=== PATIENT | male | born 1990 | race African-American/Black ===

== ENCOUNTER 2016-06-22 12:50 | Emergency (ER) | payer MEDICAID, OTHER ==
[~2016-06-22 12:50] MED LIST: ALBUTEROL INH
--- NOTE | 2016-06-22 14:18 | EDDOCDS ---
Physician Documentation [facility] Name: Brody Treviño Age: 26 yrs Sex: Male : 1990 Arrival Date: 06/22/2016 Time: 12:50 Bed 30 Private MD: NO PRIMARY PHYSICIAN, . Disposition: 06/22 13:40 Critical Care: Critical care not applicable. le Disposition: 06/22/16 13:38 Discharged to Home/Self Care. Impression: Other recurrent depressive disorders. - Condition is Stable. - Discharge Instructions: Depression, Adult, Anger Management. - Prescriptions for Hydroxyzine HCl 25 mg Oral Tablet - take 1 tablet by ORAL route every 6 hours As needed; 30 tablet. - Medication Reconciliation, Local Pharmacy Hours form. - Follow up: [facility]; When: Call to arrange an appointment; Reason: Recheck today's complaints, To establish care. Follow up: Referral list, As provided by [facility]; When: Call to arrange an appointment; Reason: Recheck today's complaints, Continuance of care. - Problem is an ongoing problem. - Symptoms are unchanged. - Notes: Call the medicine clinic to schedule a new patientappointment. They can manage your asthma for you and may be able to help you with medications for your mood swings Return to the ED for any further concerns Historical: - Allergies: no known allergies; - Home Meds: 1. albuterol sulfate 90 mcg/actuation Inhl HFAA every 4-6 hours 2. albuterol sulfate 2.5 mg /3 mL (0.083 %) Inhl nebu 4 times per day - PMHx: Asthma; Depression; - PSHx: none; - Social history: No barriers to communication noted, The patient speaks fluent Divehi, Smoking status: Patient uses tobacco products, current every day smoker. Patient uses street drugs, marijuana. - Family history: Not pertinent. - : The pt / caregiver states he / she is not on anticoagulants. Home medication list is obtained from the patient. - Exposure Risk Screening:: None identified. Vital Signs: 12:52 BP 121 / 66; Pulse 110; Resp 20 S; Temp 97.7(O); Pulse Ox 97% on R/A; Weight 70.31 kg / dd6 155.01 lbs (R); Height 6 ft. 2 in. (187.96 cm) (R); 12:52 Body Mass Index 19.90 (70.31 kg, 187.96 cm) dd6 MDM: 14:04 Financial registration complete. lg 14:06 PSA Outpatient Referrals was scanned into [employer] and attached to record. cs 14:11 [facility] Payment Agreement was scanned into [employer] and attached to record. lg Signatures: Hayden Avendano, PSA PSA cs Rosalba Fitch, Reg Reg lg Porsha Lewis, Maryann VillaRN RN js13 Alon Pink,PATRICK RN jf3 The chart was reviewed and I authenticate all verbal orders and agree with the evaluation and treatment provided.Attachments: 14:11 [facility] Payment Agreement lg MTDD
--- NOTE | 2016-06-22 14:18 | EDDOCDS ---
Nurse's Notes [facility] Name: Brody Treviño Age: 26 yrs Sex: Male : 1990 Arrival Date: 06/22/2016 Time: 12:50 Bed 30 Private MD: NO PRIMARY PHYSICIAN, . Diagnosis: Other recurrent depressive disorders Presentation: 06/22 12:58 Presenting complaint: Patient states: Pt states just not himself. mood swings with jf3 anger and depression worsening since approx March of last year. States memory lapses at times. denies SI/HI. Mental Health Triage Level: Level 1- Pt displays no suicidal or homicidal ideations and does not appear to be a danger to self or others. Adult Sepsis Screening: The patient does not have new or worsening altered mentation. Patient's respiratory rate is less than 22. Systolic blood pressure is greater than 100. Patient has a qSOFA score of 0- Negative Sepsis Screen. Mental Health Triage Level: Level 1- Pt displays no suicidal or homicidal ideations and does not appear to be a danger to self or others. Suicide/Homicide risk assessment- the patient denies having any suicidal and/or homicidal ideations and does not present with any other emotional, behavioral or mental health complaints. Status: Patient is not a children's service supervisor or dependent. Transition of care: patient was not received from another setting of care. 12:58 Acuity: ERMA Level 4 jf3 12:58 Method Of Arrival: Walkin/Carried/Asstd jf3 Triage Assessment: 13:04 General: Appears in no apparent distress, comfortable, Behavior is cooperative, crying, jf3 pleasant. General: pt states restless legs lately. Pain: Denies pain. Pt Declines HIV testing. The patient is triaged at the bedside. See Assessment in Nurses Notes section of ED record. Historical: - Allergies: no known allergies; - Home Meds: 1. albuterol sulfate 90 mcg/actuation Inhl HFAA every 4-6 hours 2. albuterol sulfate 2.5 mg /3 mL (0.083 %) Inhl nebu 4 times per day - PMHx: Asthma; Depression; - PSHx: none; - Social history: No barriers to communication noted, The patient speaks fluent Nigerien, Smoking status: Patient uses tobacco products, current every day smoker. Patient uses street drugs, marijuana. - Family history: Not pertinent. - : The pt / caregiver states he / she is not on anticoagulants. Home medication list is obtained from the patient. - Exposure Risk Screening:: None identified. Screenin:42 Screening information is obtained from the patient. Fall risk: No risks identified. js13 Assistance ADL's: requires no assistance with activities of daily living. Abuse/DV Screen: The patient / caregiver reports he/she is: not in a situation that causes fear, pain or injury. Nutritional screening: No deficits noted. Advance Directives: There is no active DNR order. home support is adequate. Assessment: 13:42 General: Appears in no apparent distress, Behavior is appropriate for age, cooperative. js13 Pain: Denies pain. Neurological: Level of Consciousness is awake, alert. Respiratory: Airway is patent Respiratory effort is even, unlabored, Respiratory pattern is regular, symmetrical. Derm: Skin is normal. Vital Signs: 12:52 BP 121 / 66; Pulse 110; Resp 20 S; Temp 97.7(O); Pulse Ox 97% on R/A; Weight 70.31 kg dd6 (R); Height 6 ft. 2 in. (187.96 cm) (R); 12:52 Body Mass Index 19.90 (70.31 kg, 187.96 cm) dd6 Vitals: 12:52 Log In Time: June 22, 2016 at 12:50. dd6 12:53 RN notified that patient meets Red Flag criteria. dd6 ED Course: 12:52 Patient visited by Juan A Garibay PCA. dd6 12:52 NO PRIMARY PHYSICIAN, . is Private Physician. dd6 12:52 Patient moved to Waiting dd6 12:56 Porsha Lewis FNP [facility] le 12:56 Patient moved to [place] dd6 12:58 Patient visited by Porsha Lewis FNP. le 12:58 Patient visited by Porsha Lewis FNP. le 12:58 Patient moved to 30 [facility] 13:02 Triage Initiated jf3 13:06 Patient visited by Alon Pink RN. jf3 13:37 [facility] is Referral Physician. le 13:37 Referral list, As provided by [facility] is Referral Physician. le 13:42 The patient / caregiver is instructed regarding the plan of care and ED course. js13 13:42 No IV's were initiated during this patient's visit. No procedures done that require js13 assistance. 13:44 Patient visited by Maryann Vo,RN. js13 14:06 PSA Outpatient Referrals was scanned into [employer] and attached to record. 14:11 [facility] Payment Agreement was scanned into [employer] and attached to record. lg Order Results: There are currently no results for this order. Outcome: 13:38 Discharge ordered by Provider. le 13:42 Discharge Assessment: Patient awake, alert and oriented x 3. No cognitive and/or js13 functional deficits noted. Patient verbalized understanding of disposition instructions. patient administered narcotics - no. Condition: stable. No special radiology studies were completed. Property :Personal belongings accompany Pt. 14:16 The following High Risk Discharge criteria are identified: None. Discharged to home js13 ambulatory. Discharge instructions given to patient, Instructed on discharge instructions, follow up and referral plans. medication usage, Demonstrated understanding of instructions, medications, Pt was receptive of discharge instructions/ teaching. Prescriptions given X 1. 14:17 Patient left the ED. js13 Signatures: Hayden Avendano, PSA PSA cs Rosalba Fitch, Reg Reg lg Iliana, Kulwinder, Security Aide Porsah Garcia, SPECIAL EDUCATION INCLUSION TEACHER SPECIAL EDUCATION INCLUSION TEACHER le Juan A Garibay, MANAGER PROGRESSIVE CARE MANAGER PROGRESSIVE CARE dd6 Maryann Vo,RN RN js13 Alon Pink,RN RN jf3 MTDD
--- NOTE | 2016-06-24 15:18 | EDDOCDS ---
Nurse's Notes [facility] Name: Brody Treviño Age: 26 yrs Sex: Male : 1990 Arrival Date: 06/22/2016 Time: 12:50 Bed 30 Private MD: NO PRIMARY PHYSICIAN, . Diagnosis: Other recurrent depressive disorders Presentation: 06/22 12:58 Presenting complaint: Patient states: Pt states just not himself. mood swings with jf3 anger and depression worsening since approx March of last year. States memory lapses at times. denies SI/HI. Mental Health Triage Level: Level 1- Pt displays no suicidal or homicidal ideations and does not appear to be a danger to self or others. Adult Sepsis Screening: The patient does not have new or worsening altered mentation. Patient's respiratory rate is less than 22. Systolic blood pressure is greater than 100. Patient has a qSOFA score of 0- Negative Sepsis Screen. Mental Health Triage Level: Level 1- Pt displays no suicidal or homicidal ideations and does not appear to be a danger to self or others. Suicide/Homicide risk assessment- the patient denies having any suicidal and/or homicidal ideations and does not present with any other emotional, behavioral or mental health complaints. Status: Patient is not a food service sales representatives or dependent. Transition of care: patient was not received from another setting of care. 12:58 Acuity: ERMA Level 4 jf3 12:58 Method Of Arrival: Walkin/Carried/Asstd jf3 Triage Assessment: 13:04 General: Appears in no apparent distress, comfortable, Behavior is cooperative, crying, jf3 pleasant. General: pt states restless legs lately. Pain: Denies pain. Pt Declines HIV testing. The patient is triaged at the bedside. See Assessment in Nurses Notes section of ED record. Historical: - Allergies: no known allergies; - Home Meds: 1. albuterol sulfate 90 mcg/actuation Inhl HFAA every 4-6 hours 2. albuterol sulfate 2.5 mg /3 mL (0.083 %) Inhl nebu 4 times per day - PMHx: Asthma; Depression; - PSHx: none; - Social history: No barriers to communication noted, The patient speaks fluent Canadian, Smoking status: Patient uses tobacco products, current every day smoker. Patient uses street drugs, marijuana. - Family history: Not pertinent. - : The pt / caregiver states he / she is not on anticoagulants. Home medication list is obtained from the patient. - Exposure Risk Screening:: None identified. Screenin:42 Screening information is obtained from the patient. Fall risk: No risks identified. js13 Assistance ADL's: requires no assistance with activities of daily living. Abuse/DV Screen: The patient / caregiver reports he/she is: not in a situation that causes fear, pain or injury. Nutritional screening: No deficits noted. Advance Directives: There is no active DNR order. home support is adequate. Assessment: 13:42 General: Appears in no apparent distress, Behavior is appropriate for age, cooperative. js13 Pain: Denies pain. Neurological: Level of Consciousness is awake, alert. Respiratory: Airway is patent Respiratory effort is even, unlabored, Respiratory pattern is regular, symmetrical. Derm: Skin is normal. Social Work Consult: 14:06 Social Work Note: Met with Pt at bedside per request BÁRBARA Lewis. Pt was A&Ox3, used rb good eye contact, denied SI/HI, denied AH/VH, presented with good insight. Pt reported gained full custody of 2y/o Dgt today. Pt stated having extreme mood swings (from angry to crying; no in between) , memory loss, stutters, and feeling depressed since March. Pt looking for referrals. Pt works at [employer] and reports they are very supportive. Pt to contact CPS Worker- A.W. for assistance as needed. Referrals given. Pt to follow up with C and outpt services. No further interventions needed at this time. Vital Signs: 12:52 BP 121 / 66; Pulse 110; Resp 20 S; Temp 97.7(O); Pulse Ox 97% on R/A; Weight 70.31 kg dd6 (R); Height 6 ft. 2 in. (187.96 cm) (R); 12:52 Body Mass Index 19.90 (70.31 kg, 187.96 cm) dd6 Vitals: 12:52 Log In Time: June 22, 2016 at 12:50. dd6 12:53 RN notified that patient meets Red Flag criteria. dd6 ED Course: 12:52 Patient visited by Juan A Garibay PCA. dd6 12:52 NO PRIMARY PHYSICIAN, . is Private Physician. dd6 12:52 Patient moved to [facility] dd6 12:56 Porsha Lewis FNP is [facility] le 12:56 Patient moved to [facility] dd6 12:58 Patient visited by Porsha Lewis FNP. le 12:58 Patient visited by Porsha Lewis FNP. le 12:58 Patient moved to [facility] 13:02 Triage Initiated jf3 13:06 Patient visited by Alon Pink RN. jf3 13:37 [facility] is Referral Physician. le 13:37 Referral list, As provided by [facility] is Referral Physician. le 13:42 The patient / caregiver is instructed regarding the plan of care and ED course. js13 13:42 No IV's were initiated during this patient's visit. No procedures done that require js assistance. 13:44 Patient visited by Maryann Vo RN. js13 14:06 PSA Outpatient Referrals was scanned into [employer] and attached to record. 14:11 [facility] Payment Agreement was scanned into [employer] and attached to record. 06/23 08:54 T-Sheet-- Draft Copy was scanned into [employer] and attached to record. [facility] Order Results: There are currently no results for this order. Outcome: 06/22 13:38 Discharge ordered by Provider. le 13:42 Discharge Assessment: Patient awake, alert and oriented x 3. No cognitive and/or js13 functional deficits noted. Patient verbalized understanding of disposition instructions. patient administered narcotics - no. Condition: stable. No special radiology studies were completed. Property :Personal belongings accompany Pt. 14:16 The following High Risk Discharge criteria are identified: None. Discharged to home js13 ambulatory. Discharge instructions given to patient, Instructed on discharge instructions, follow up and referral plans. medication usage, Demonstrated understanding of instructions, medications, Pt was receptive of discharge instructions/ teaching. Prescriptions given X 1. 14:17 Patient left the ED. js13 Signatures: Ann Rizzo, PSA PSA rb Hayden Avendano, PSA PSA cs Rosalba Ftich, Reg Reg lg Ferendzo, Kulwinder, Security Aide Securpjf Porsha Lewis FNP FNP le [place], Daniell, TECHNOLOGY INFUSION SPECIALIST TECHNOLOGY INFUSION SPECIALIST dd6 Maryann Vo,RN RN js13 Alon Pink,RN RN jf3 Joy Gardner Chart Complete MTDD
--- NOTE | 2016-06-24 15:18 | EDDOCDS ---
Physician Documentation [facility] Name: Brody Treviño Age: 26 yrs Sex: Male : 1990 Arrival Date: 06/22/2016 Time: 12:50 Bed 30 Private MD: NO PRIMARY PHYSICIAN, . Disposition: 06/22 13:40 Critical Care: Critical care not applicable. le Disposition: 06/22/16 13:38 Discharged to Home/Self Care. Impression: Other recurrent depressive disorders. - Condition is Stable. - Discharge Instructions: Depression, Adult, Anger Management. - Prescriptions for Hydroxyzine HCl 25 mg Oral Tablet - take 1 tablet by ORAL route every 6 hours As needed; 30 tablet. - Medication Reconciliation, Local Pharmacy Hours form. - Follow up: [facility]; When: Call to arrange an appointment; Reason: Recheck today's complaints, To establish care. Follow up: Referral list, As provided by [facility]; When: Call to arrange an appointment; Reason: Recheck today's complaints, Continuance of care. - Problem is an ongoing problem. - Symptoms are unchanged. - Notes: Call the medicine clinic to schedule a new patientappointment. They can manage your asthma for you and may be able to help you with medications for your mood swings Return to the ED for any further concerns Historical: - Allergies: no known allergies; - Home Meds: 1. albuterol sulfate 90 mcg/actuation Inhl HFAA every 4-6 hours 2. albuterol sulfate 2.5 mg /3 mL (0.083 %) Inhl nebu 4 times per day - PMHx: Asthma; Depression; - PSHx: none; - Social history: No barriers to communication noted, The patient speaks fluent Turkmen, Smoking status: Patient uses tobacco products, current every day smoker. Patient uses street drugs, marijuana. - Family history: Not pertinent. - : The pt / caregiver states he / she is not on anticoagulants. Home medication list is obtained from the patient. - Exposure Risk Screening:: None identified. Vital Signs: 12:52 BP 121 / 66; Pulse 110; Resp 20 S; Temp 97.7(O); Pulse Ox 97% on R/A; Weight 70.31 kg / dd6 155.01 lbs (R); Height 6 ft. 2 in. (187.96 cm) (R); 12:52 Body Mass Index 19.90 (70.31 kg, 187.96 cm) dd6 MDM: 14:04 Financial registration complete. lg 14:06 PSA Outpatient Referrals was scanned into [employer] and attached to record. 14:11 [facility] Payment Agreement was scanned into [employer] and attached to record. lg 06/23 08:54 T-Sheet-- Draft Copy was scanned into [employer] and attached to record. [facility] Signatures: Haydne Avendano, PSA PSA Rosalba Fitch, Reg Reg lg Porsha Lewis, CAMP BOSS Maryann CabralRN RN js13 Alon Pink,RN RN jf3 Joy Gardner [facility] The chart was reviewed and I authenticate all verbal orders and agree with the evaluation and treatment provided.Attachments: 14:11 [facility] Payment Agreement 06/23 08:54 T-Sheet-- Draft Copy [facility] Chart Complete MTDD
--- NOTE | 2016-06-24 15:18 | EDDOCDS ---
Physician Documentation [facility] Name: Brody Treviño Age: 26 yrs Sex: Male : 1990 Arrival Date: 06/22/2016 Time: 12:50 Bed 30 Private MD: NO PRIMARY PHYSICIAN, . Disposition: 06/22 13:40 Critical Care: Critical care not applicable. le Disposition: 06/22/16 13:38 Discharged to Home/Self Care. Impression: Other recurrent depressive disorders. - Condition is Stable. - Discharge Instructions: Depression, Adult, Anger Management. - Prescriptions for Hydroxyzine HCl 25 mg Oral Tablet - take 1 tablet by ORAL route every 6 hours As needed; 30 tablet. - Medication Reconciliation, Local Pharmacy Hours form. - Follow up: [facility]; When: Call to arrange an appointment; Reason: Recheck today's complaints, To establish care. Follow up: Referral list, As provided by [facility]; When: Call to arrange an appointment; Reason: Recheck today's complaints, Continuance of care. - Problem is an ongoing problem. - Symptoms are unchanged. - Notes: Call the medicine clinic to schedule a new patientappointment. They can manage your asthma for you and may be able to help you with medications for your mood swings Return to the ED for any further concerns Historical: - Allergies: no known allergies; - Home Meds: 1. albuterol sulfate 90 mcg/actuation Inhl HFAA every 4-6 hours 2. albuterol sulfate 2.5 mg /3 mL (0.083 %) Inhl nebu 4 times per day - PMHx: Asthma; Depression; - PSHx: none; - Social history: No barriers to communication noted, The patient speaks fluent Albanian, Smoking status: Patient uses tobacco products, current every day smoker. Patient uses street drugs, marijuana. - Family history: Not pertinent. - : The pt / caregiver states he / she is not on anticoagulants. Home medication list is obtained from the patient. - Exposure Risk Screening:: None identified. Vital Signs: 12:52 BP 121 / 66; Pulse 110; Resp 20 S; Temp 97.7(O); Pulse Ox 97% on R/A; Weight 70.31 kg / dd6 155.01 lbs (R); Height 6 ft. 2 in. (187.96 cm) (R); 12:52 Body Mass Index 19.90 (70.31 kg, 187.96 cm) dd6 MDM: 14:04 Financial registration complete. lg 14:06 PSA Outpatient Referrals was scanned into [employer] and attached to record. 14:11 [facility] Payment Agreement was scanned into [employer] and attached to record. lg 06/23 08:54 T-Sheet-- Draft Copy was scanned into [employer] and attached to record. [facility] Signatures: Hayden Avendano, PSA PSA Rosalba Fitch, Reg Reg lg Porsha Lewis, WORKERS' COMPENSATION HEARINGS OFFICER Maryann CabralRN RN js13 Alon Pink,RN RN jf3 Joy Gardner [facility] The chart was reviewed and I authenticate all verbal orders and agree with the evaluation and treatment provided.Attachments: 14:11 [facility] Payment Agreement 06/23 08:54 T-Sheet-- Draft Copy [facility] Chart Complete MTDD
== END 2016-06-22 14:17 | disposition home or self-care (01) ==
LOC: M ED 12:50
DX: F32.9 Major depressive disorder, single episode, unspecified (principal); J45.909 Unspecified asthma, uncomplicated; F17.210 Nicotine dependence, cigarettes, uncomplicated; Z79.51 Long term (current) use of inhaled steroids

== ENCOUNTER 2017-01-08 17:42 | Emergency (ER) | payer OTHER ==
[~2017-01-08] VITALS: Ht 188 cm; Wt 75.5 kg
[2017-01-08] MEDS ORDERED: ALBU83IN INH (18:13)
[2017-01-08 18:38] LABS: MEAN CORPUSCULAR HEMOGLOBIN 32.5 pg (27.0-33.0); MEAN CORPUSCULAR VOLUME 95.5 fl (80.0-96.0); RED CELL DISTRIBUTION WIDTH 12.8 % (11.5-14.5); WHITE BLOOD COUNT 16.2 K/mm3 (4.0-10.0)
[2017-01-08 18:54] VITALS: BP 135/74
[2017-01-08 18:58] LABS: METHADONE URINE NEGATIVE (NEGATIVE)
[2017-01-08 19:12] LABS: ALBUMIN 4.5 GM/DL (3.2-5.2); ALKALINE PHOSPHATASE 48 U/L (45-117); ALT/SGPT 124 U/L (12-78); ANION GAP 7 MEQ/L (8-16); AST/SGOT 630 U/L (15-37); BILIRUBIN,DIRECT 0.4 MG/DL (0.0-0.2); BILIRUBIN,TOTAL 1.2 MG/DL (0.2-1.0); BLOOD UREA NITROGEN 18 MG/DL (7-18); CALCIUM LEVEL 9.4 MG/DL (8.5-10.1); CARBON DIOXIDE LEVEL 26 MEQ/L (21-32); CHLORIDE LEVEL 108 MEQ/L (98-107); CREATININE FOR GFR 1.59 MG/DL (0.70-1.30); GLOMERULAR FILTRATION RATE > 60.0 (>60); GLUCOSE, FASTING 85 MG/DL (70-105); POTASSIUM SERUM 4.6 MEQ/L (3.5-5.1); SODIUM LEVEL 141 MEQ/L (136-145); TOTAL PROTEIN 7.5 GM/DL (6.4-8.2)
[2017-01-08] MEDS ORDERED: clonazePAM 0.5 MG TAB PO ONE (20:00)
== END 2017-01-08 20:41 | disposition home or self-care (01) ==
LOC: M ED 17:42
DX: F43.0 Acute stress reaction (principal)

== ENCOUNTER 2017-01-10 14:09 | Emergency (ER) | payer OTHER ==
[~2017-01-10] VITALS: Ht 188 cm; Wt 74.3 kg
[~2017-01-10 14:09] MED LIST changes: -BENT20TA PO; -ZOFR4TAB3 PO
[2017-01-10] MEDS ORDERED: KETOROLAC 30 MG/ML VIAL (J1885) IV ONE (15:30)
[2017-01-10] MEDS ORDERED: NS 1,000 ML IV ONE (15:30)
[2017-01-10] MEDS ORDERED: ONDANSETRON 4MG/2ML VIAL (J2405) IV ONE (15:30)
[2017-01-10 16:03] LABS: BASO % 0.6 % (0.0-1.0); EOS % 0.6 % (0.0-3.0); LARGE UNSTAINED CELL # 0.1 K/mm3 (0.0-0.4); LARGE UNSTAINED CELL % 1.6 % (0.0-4.0); LYMPH # 1.4 K/mm3 (1.5-6.5); LYMPH % 25.6 % (24.0-44.0); MEAN CORPUSCULAR HEMOGLOBIN 32.3 pg (27.0-33.0); MEAN CORPUSCULAR HGB CONC 34.8 g/dl (32.0-36.5); MEAN CORPUSCULAR VOLUME 92.8 fl (80.0-96.0); MONO # 0.5 K/mm3 (0.0-0.8); MONO % 9.6 % (0.0-5.0); NEUTROPHILS # 3.1 K/mm3 (1.8-7.7); PLATELET COUNT, AUTOMATED 225 k/mm3 (150-450); RED CELL DISTRIBUTION WIDTH 12.8 % (11.5-14.5)
[2017-01-10 16:04] LABS: INR 1.23
[2017-01-10 16:31] LABS: ALBUMIN 3.9 GM/DL (3.2-5.2); ALBUMIN/GLOBULIN RATIO 1.34 (1.00-1.93); ALKALINE PHOSPHATASE 35 U/L (45-117); ALT/SGPT 178 U/L (12-78); AMYLASE 50 U/L (25-115); ANION GAP 10 MEQ/L (8-16); AST/SGOT 455 U/L (15-37); BILIRUBIN,DIRECT 0.3 MG/DL (0.0-0.2); BILIRUBIN,TOTAL 0.8 MG/DL (0.2-1.0); BLOOD UREA NITROGEN 13 MG/DL (7-18); CALCIUM LEVEL 8.7 MG/DL (8.5-10.1); CARBON DIOXIDE LEVEL 23 MEQ/L (21-32); CHLORIDE LEVEL 108 MEQ/L (98-107); CREATININE FOR GFR 1.11 MG/DL (0.70-1.30); GLOMERULAR FILTRATION RATE > 60.0 (>60); GLUCOSE, FASTING 92 MG/DL (70-105); POTASSIUM SERUM 3.6 MEQ/L (3.5-5.1); SODIUM LEVEL 141 MEQ/L (136-145); TOTAL PROTEIN 6.8 GM/DL (6.4-8.2)
--- NOTE | 2017-01-10 16:46 | REP ---
GALLBLADDER ULTRASOUND: 01/10/2017: Clinical history: Right upper quadrant pain. Findings: No prior study. The liver is homogeneous without focal hepatic mass, intrahepatic biliary dilatation nor perihepatic ascites. No gross hepatomegaly. Gallbladder shows no stone, sludge or pericholecystic fluid. No sonographic Méndez sign is seen. Gallbladder wall thickness 2 mm. The common duct is 2.6 mm and without filling defect or stone. Visualized pancreas and the right kidney were unremarkable. The kidney 10.2 x 3.7 x 5.5 cm. No stone or hydronephrosis. Impression: 1. Normal right upper quadrant ultrasound. Liver unremarkable. No sonographic Méndez sign. No gallstones, biliary dilatation, common duct stone or dilatation nor abnormalities of the pancreas. Right kidney without hydronephrosis or stone. Signed by Luis Acevedo MD 01/10/2017 06:38 P
[2017-01-10] MEDS ORDERED: BENT20TA PO (16:53)
[2017-01-10] MEDS ORDERED: ZOFR4TAB3 PO (16:53)
[2017-01-10 16:55] VITALS: BP 104/65
== END 2017-01-10 17:05 | disposition home or self-care (01) ==
LOC: M ED 14:09
DX: R94.5 Abnormal results of liver function studies (principal); R10.84 Generalized abdominal pain; J45.909 Unspecified asthma, uncomplicated; F41.9 Anxiety disorder, unspecified; F32.9 Major depressive disorder, single episode, unspecified; Z79.899 Other long term (current) drug therapy
CPT/HCPCS: 36415; 76705; 80048; 80076; 81001; 82150; 83605; 83690; 85025; 85610; 85730; 96374; 96375; 99283; J1885; J2405

== ENCOUNTER → 2017-01-10 | Outpatient (REF) | payer OTHER ==
[~2017-01-10] MED LIST changes: +ALBU83IN INH; +BENT20TA PO; +ZOFR4TAB3 PO
== END ==
LOC: M LAB REF 16:24
PROVIDERS: ATTEND Nurse Practitioner Family
DX: R30.0 Dysuria (principal)

== ENCOUNTER → 2017-01-12 | Outpatient (CLI) | payer OTHER ==
[~2017-01-12] MED LIST changes: +BENT20TA PO; +ZOFR4TAB3 PO
[2017-01-12 15:21] LABS: BASO % 0.7 % (0.0-1.0); EOS # 0.1 K/mm3 (0.0-0.50); EOS % 1.7 % (0.0-3.0); LARGE UNSTAINED CELL # 0.1 K/mm3 (0.0-0.4); LYMPH % 18.4 % (24.0-44.0); MEAN CORPUSCULAR HEMOGLOBIN 31.8 pg (27.0-33.0); MEAN CORPUSCULAR HGB CONC 33.7 g/dl (32.0-36.5); MEAN CORPUSCULAR VOLUME 94.3 fl (80.0-96.0); MONO # 0.2 K/mm3 (0.0-0.8); MONO % 4.3 % (0.0-5.0); NEUTROPHILS # 3.8 K/mm3 (1.8-7.7); NEUTROPHILS % 73.9 % (36.0-66.0); PLATELET COUNT, AUTOMATED 231 k/mm3 (150-450); RED CELL DISTRIBUTION WIDTH 12.9 % (11.5-14.5); WHITE BLOOD COUNT 5.1 K/mm3 (4.0-10.0)
[2017-01-12 15:44] LABS: ALBUMIN 3.6 GM/DL (3.2-5.2); ALKALINE PHOSPHATASE 32 U/L (45-117); ALT/SGPT 126 U/L (12-78); ANION GAP 6 MEQ/L (8-16); AST/SGOT 146 U/L (15-37); BILIRUBIN,TOTAL 0.4 MG/DL (0.2-1.0); BLOOD UREA NITROGEN 10 MG/DL (7-18); CALCIUM LEVEL 8.6 MG/DL (8.5-10.1); CARBON DIOXIDE LEVEL 28 MEQ/L (21-32); CHLORIDE LEVEL 111 MEQ/L (98-107); CREATININE FOR GFR 1.02 MG/DL (0.70-1.30); GLOMERULAR FILTRATION RATE > 60.0 (>60); GLUCOSE, FASTING 92 MG/DL (70-105); POTASSIUM SERUM 4.6 MEQ/L (3.5-5.1); SODIUM LEVEL 145 MEQ/L (136-145)
== END ==
LOC: M LAB 14:49
PROVIDERS: ATTEND Family Medicine Addiction Medicine
DX: R94.5 Abnormal results of liver function studies (principal)

== ENCOUNTER 2018-11-07 17:30 | Emergency (ER) | payer SELFPAY ==
[~2018-11-07] VITALS: Ht 188 cm; Wt 79.5 kg
[2018-11-07 17:30] VITALS: BP 116/66
[~2018-11-07 17:30] MED LIST changes: +ALBU83IN NEB; +INDO25CA PO; +PENI500T PO; +VENTAER INH; +ZOFR4TAB14 PO; -ZOFR4TAB3 PO
[2018-11-07] MEDS ORDERED: IBUP-1114 PO (17:35)
[2018-11-07] MEDS ORDERED: LIDOCAINE 2% W/EPIN INJ 20ML **PRES FREE INJ ONE (18:00)
[2018-11-07] MEDS ORDERED: AUGMENTIN 875 MG TAB PO ONE (18:00)
[2018-11-07] MEDS ORDERED: QC A650T3 PO (18:09)
[2018-11-07] MEDS ORDERED: IBUP80TA PO (18:09)
[2018-11-07] MEDS ORDERED: AUGM875T28 PO (18:09)
== END 2018-11-07 18:20 | disposition home or self-care (01) ==
LOC: MERGE 17:30 → M ED 17:30
DX: K02.9 Dental caries, unspecified (principal); F17.210 Nicotine dependence, cigarettes, uncomplicated; Z79.51 Long term (current) use of inhaled steroids; Z79.899 Other long term (current) drug therapy

== ENCOUNTER → 2019-04-24 | Outpatient (CLI) | payer SELFPAY ==
[~2019-04-24] MED LIST changes: +AUGM875T28 PO; +IBUP-1114 PO; +IBUP80TA PO; +INDO-16 PO; -INDO25CA PO; +QC A650T3 PO
== END ==
LOC: M OUTALCOH 09:18
PROVIDERS: ATTEND Psychiatry & Neurology Psychiatry
DX: F12.20 Cannabis dependence, uncomplicated (principal)

== ENCOUNTER 2019-05-06 08:57 | Outpatient (RCR) | payer SELFPAY | END 2019-05-09 | LOC: M OUTALCOH 08:57 | PROVIDERS: ATTEND Psychiatry & Neurology Psychiatry | DX: F12.20 Cannabis dependence, uncomplicated (principal) ==

== ENCOUNTER 2019-05-27 15:00 | Outpatient (RCR) | payer MEDICAID | END 2019-06-09 | LOC: M OUTALCOH 15:00 | PROVIDERS: ATTEND Psychiatry & Neurology Psychiatry | DX: F12.10 Cannabis abuse, uncomplicated (principal); Z72.0 Tobacco use ==

== ENCOUNTER 2019-07-08 13:50 | Outpatient (RCR) | payer MEDICAID, SELFPAY | END 2019-07-10 | LOC: M OUTALCOH 13:50 | PROVIDERS: ATTEND Psychiatry & Neurology Addiction Medicine | DX: F12.10 Cannabis abuse, uncomplicated (principal); Z72.0 Tobacco use ==

== ENCOUNTER 2019-08-05 15:00 | Outpatient (RCR) | payer MEDICAID | END 2019-08-08 | LOC: M OUTALCOH 15:00 | PROVIDERS: ATTEND Psychiatry & Neurology Addiction Medicine | DX: F12.10 Cannabis abuse, uncomplicated (principal); Z72.0 Tobacco use ==

== ENCOUNTER → 2019-08-31 | Outpatient (CLI) | payer MEDICAID | LOC: M OUTALCOH 08:36 | PROVIDERS: ATTEND Psychiatry & Neurology Addiction Medicine | DX: F12.20 Cannabis dependence, uncomplicated (principal); Z72.0 Tobacco use ==

== ENCOUNTER 2019-09-07 14:22 | Outpatient (RCR) | payer MEDICAID | END 2019-09-08 | LOC: M OUTALCOH 14:22 | PROVIDERS: ATTEND Psychiatry & Neurology Addiction Medicine | DX: F12.20 Cannabis dependence, uncomplicated (principal); Z72.0 Tobacco use ==

== ENCOUNTER 2019-10-07 08:45 | Outpatient (RCR) | payer MEDICAID | END 2019-10-08 | LOC: M OUTALCOH 08:45 | PROVIDERS: ATTEND Psychiatry & Neurology Addiction Medicine | DX: F12.20 Cannabis dependence, uncomplicated (principal); F17.200 Nicotine dependence, unspecified, uncomplicated ==

== ENCOUNTER 2019-10-12 08:45 | Outpatient (RCR) | payer MEDICAID | END 2019-11-08 | LOC: M OUTALCOH 08:45 | PROVIDERS: ATTEND Psychiatry & Neurology Addiction Medicine | DX: F12.20 Cannabis dependence, uncomplicated (principal); F17.200 Nicotine dependence, unspecified, uncomplicated ==

== ENCOUNTER → 2019-12-28 | Outpatient (CLI) | payer MEDICAID | LOC: M OUTALCOH 07:44 | PROVIDERS: ATTEND Psychiatry & Neurology Addiction Medicine | DX: F12.20 Cannabis dependence, uncomplicated (principal) ==

== ENCOUNTER 2020-01-07 09:00 | Outpatient (RCR) | payer MEDICAID | END 2020-01-08 | LOC: M OUTALCOH 09:00 | PROVIDERS: ATTEND Psychiatry & Neurology Addiction Medicine | DX: F12.20 Cannabis dependence, uncomplicated (principal); Z72.0 Tobacco use ==

== ENCOUNTER 2020-02-04 08:00 | Outpatient (RCR) | payer MEDICAID | END 2020-02-08 | LOC: M OUTALCOH 08:00 | PROVIDERS: ATTEND Psychiatry & Neurology Addiction Medicine | DX: F12.20 Cannabis dependence, uncomplicated (principal); Z72.0 Tobacco use ==

== ENCOUNTER 2020-03-02 14:37 | Outpatient (RCR) | payer MEDICAID | END 2020-03-09 | LOC: M OUTALCOH 14:37 | PROVIDERS: ATTEND Psychiatry & Neurology Addiction Medicine | DX: F12.20 Cannabis dependence, uncomplicated (principal); Z72.0 Tobacco use ==

== ENCOUNTER 2020-04-08 15:00 | Outpatient (RCR) | payer MEDICAID | END 2020-04-09 | LOC: M OUTALCOH 15:00 | PROVIDERS: ATTEND Psychiatry & Neurology Addiction Medicine | DX: F12.20 Cannabis dependence, uncomplicated (principal); Z72.0 Tobacco use ==

== ENCOUNTER 2020-04-29 14:22 | Outpatient (RCR) | payer MEDICAID | END 2020-05-09 | LOC: M OUTALCOH 14:22 | PROVIDERS: ATTEND Psychiatry & Neurology Addiction Medicine | DX: F12.20 Cannabis dependence, uncomplicated (principal); Z72.0 Tobacco use ==

== ENCOUNTER 2020-05-31 15:00 | Outpatient (RCR) | payer MEDICAID | END 2020-06-09 | LOC: M OUTALCOH 15:00 | PROVIDERS: ATTEND Psychiatry & Neurology Addiction Medicine | DX: F12.20 Cannabis dependence, uncomplicated (principal); Z72.0 Tobacco use ==

== ENCOUNTER 2020-07-05 14:00 | Outpatient (RCR) | payer MEDICAID | END 2020-07-10 | LOC: M OUTALCOH 14:00 | PROVIDERS: ATTEND Psychiatry & Neurology Addiction Medicine | DX: F12.20 Cannabis dependence, uncomplicated (principal); Z72.0 Tobacco use ==

== ENCOUNTER 2020-08-05 11:09 | Outpatient (RCR) | payer MEDICAID | END 2020-08-07 | LOC: M OUTALCOH 11:09 | PROVIDERS: ATTEND Psychiatry & Neurology Psychiatry | DX: F12.20 Cannabis dependence, uncomplicated (principal); Z72.0 Tobacco use ==

== ENCOUNTER 2020-09-02 13:13 | Outpatient (RCR) | payer MEDICAID | END 2020-09-07 | LOC: M OUTALCOH 13:13 | PROVIDERS: ATTEND Psychiatry & Neurology Psychiatry | DX: F12.20 Cannabis dependence, uncomplicated (principal); Z72.0 Tobacco use ==

== ENCOUNTER 2020-09-30 15:00 | Outpatient (RCR) | payer MEDICAID | END 2020-10-07 | LOC: M OUTALCOH 15:00 | PROVIDERS: ATTEND Psychiatry & Neurology Psychiatry | DX: F12.20 Cannabis dependence, uncomplicated (principal); Z72.0 Tobacco use ==

== ENCOUNTER 2020-10-28 14:00 | Outpatient (RCR) | payer MEDICAID | END 2020-11-07 | LOC: M OUTALCOH 14:00 | PROVIDERS: ATTEND Psychiatry & Neurology Psychiatry | DX: F12.20 Cannabis dependence, uncomplicated (principal); Z72.0 Tobacco use ==

== ENCOUNTER 2022-02-12 11:12 | Emergency (ER) | payer MEDICAID, OTHER ==
[~2022-02-12] VITALS: Ht 188 cm; Wt 81.8 kg
[~2022-02-12 11:12] MED LIST changes: +ALBU2.5V10 INH; +ALBU2.5V10 NEB; -ALBU83IN INH; -ALBU83IN NEB
[2022-02-12 11:21] VITALS: BP 108/62
[2022-02-12] MEDS ORDERED: ACETAMINOPHEN 500 MG TAB PO ONE (11:30)
[2022-02-12] MEDS ORDERED: KETOROLAC 60MG 2ML VIAL IM ONE (12:20)
[2022-02-12 12:22] LABS: RSV AMPLIFICATION NEGATIVE (NEGATIVE)
== END 2022-02-12 13:11 | disposition home or self-care (01) ==
LOC: M ED 11:12 → EDBD 11:12 → M ED 13:11
DX: U07.1 COVID-19 (principal); F17.200 Nicotine dependence, unspecified, uncomplicated
CPT/HCPCS: 87631; 96372; 99284; J1885